=== PATIENT | female | born 2005 | race Caucasian/White ===

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

== ENCOUNTER 2024-04-02 21:00 | Emergency (ER) | payer BC ==
[~2024-04-02] VITALS: Ht 160 cm; Wt 58.6 kg
[2024-04-02 21:05] VITALS: BP 119/84; PULSE 73; RESP 16; TEMP 98.1; O2SAT 98
== END 2024-04-03 00:35 | disposition left against medical advice (07) ==
LOC: ER 21:01
DX: R09.81 Nasal congestion (principal); R05.9 Cough, unspecified; J00 Acute nasopharyngitis [common cold]; Z53.21 Procedure and treatment not carried out due to patient leaving prior to being seen by health care provider

== ENCOUNTER 2024-07-22 23:27 | Emergency (ER) | payer BC, MEDICAID ==
[~2024-07-22] VITALS: Ht 160 cm; Wt 60.7 kg
[2024-07-22 23:29] VITALS: TEMP 100.2
[2024-07-23 01:23] LABS: BASOPHILS % (AUTO) 0.4 % (0-1); EOSINOPHILS % (AUTO) 0 % (0-6); HEMATOCRIT 38.9 % (35.0-45.0); HEMOGLOBIN 13.8 g/dl (12.0-16.0); LYMPHOCYTES # (AUTO) 1.6 X10'3 (1.1-4.8); LYMPHOCYTES % (AUTO) 17.3 % (21-51); MEAN CORPUSCULAR HEMOGLOBIN 31.3 PG (27.0-31.0); MEAN CORPUSCULAR HGB CONC 35.3 g/dL (33.0-36.5); MEAN CORPUSCULAR VOLUME 88.5 FL (78-98); MEAN PLATELET VOLUME 7.7 FL (7.4-10.4); MONOCYTES # (AUTO) 0.8 X10'3 (0-0.9); MONOCYTES % (AUTO) 8.2 % (2-12); NEUTROPHILS % (AUTO) 74.1 % (42-75); PLATELET COUNT 244 X10'3 (140-440); RED CELL DISTRIBUTION WIDTH 12.7 % (11.5-14.5); WHITE BLOOD COUNT 9.5 X10'3 (4.5-11.0)
[2024-07-23] MEDS: ketorolac trometh 15mg/ml vial 15 MG/ML ML IV ONE (01:30)
[2024-07-23 01:35] LABS: ALBUMIN 3.1 G/DL (3.4-5.0); ANION GAP 11 (8-16); BLOOD UREA NITROGEN 8 MG/DL (7-18); CALCIUM 8.6 MG/DL (8.5-10.1); CHLORIDE 102 MMOL/L (99-107); GLUCOSE 183 MG/DL (70-104); POTASSIUM 3.6 MMOL/L (3.5-5.1); SODIUM 137 MMOL/L (135-145); eCRCL 94 ML/MIN; eGFR > 90 ML/MIN
[2024-07-23 01:55] LABS: STREP A SCREEN NEGATIVE (Neg)
[2024-07-23] MEDS ORDERED: LIDO15SO9 PO (02:42)
[2024-07-23] MEDS: LIDOcaine 2% Viscous 15ml cup MM ONE (02:44)
[2024-07-23] MEDS ORDERED: NORMAL SALINE IV ONE (02:45)
[2024-07-23] MEDS ORDERED: ACYCLOVIR IV ONE (02:45)
[2024-07-23 03:16] LABS: ALANINE AMINOTRANSFERASE 15 U/L (12-78); ALBUMIN/GLOBULIN RATIO 0.9 (1.1-1.5); ALKALINE PHOSPHATASE 118 IU/L (20-180); ASPARTATE AMINO TRANSFERASE 10 U/L (10-37); BILIRUBIN,DIRECT 0.1 MG/DL (0-0.3); BILIRUBIN,TOTAL 0.3 MG/DL (0.1-1.0); TOTAL PROTEIN 6.7 G/DL (6.4-8.2)
[2024-07-23 03:50] LABS: URINE HCG NEGATIVE (NEG)
[2024-07-23 03:53] LABS: BILIRUBIN,URINE NEGATIVE (Neg); CLARITY,URINE CLEAR (Clear); COLOR,URINE YELLOW (Yellow); GLUCOSE, URINE >=1000 mg/dl (Neg); KETONES,URINE 40 mg/dl (Neg); LEUKOCYTE ESTERASE ,URINE NEGATIVE (Neg); NITRITES, URINE NEGATIVE (Neg); OCCULT BLOOD,URINE LARGE (Neg); PROTEIN,URINE TRACE mg/dl (Neg); UROBILINOGEN,URINE 0.2 E.U/dL (0.2-1.0)
[2024-07-23 04:00] LABS: UA COLLECTION TYPE CLN CATCH MIDSTREAM
[2024-07-23 04:04] LABS: BACTERIA,URINE 2+ /HPF (Neg); SQUAMOUS EPITHELIAL CELL,UR MANY /LPF (FEW); WBC,URINE 20-30 /HPF (0-4)
[2024-07-23] MEDS: NORMAL SALINE IV ONE (04:29)
[2024-07-23] MEDS: ACYCLOVIR IV ONE (04:29)
[2024-07-23] MEDS: normal saline 1000ml 1,000 ML IV ONE (04:30)
[2024-07-23 04:52] LABS: URINE AMPHETAMINE SCREEN NEGATIVE (Neg); URINE BARBITUATE SCREEN NEGATIVE (Neg); URINE BENZODIAZEPINES SCREEN NEGATIVE (Neg); URINE CANNABINOID SCREEN NEGATIVE (Neg); URINE COCAINE SCREEN NEGATIVE (Neg); URINE METHADONE SCREEN NEGATIVE (Neg); URINE OPIATE SCREEN NEGATIVE (Neg); URINE PHENCYCLIDINE SCREEN NEGATIVE (Neg)
[2024-07-23 05:31] VITALS: BP 186/85; PULSE 98; RESP 14; O2SAT 100
== END 2024-07-23 05:34 | disposition home or self-care (01) ==
LOC: ER 23:27
DX: B00.9 Herpesviral infection, unspecified (principal); E10.9 Type 1 diabetes mellitus without complications; Z20.822 Contact with and (suspected) exposure to COVID-19
CPT/HCPCS: 36415; 80048; 80076; 80305; 81001; 81025; 85025; 87081; 87502; 87503; 87811; 87880; 96365; 96375; 99284; J0133; J1885; J7030

== ENCOUNTER 2024-08-28 03:55 | Emergency (ER) | payer BC, MEDICAID ==
[~2024-08-28] VITALS: Ht 160 cm; Wt 61.8 kg
[~2024-08-28 03:55] MED LIST changes: +LIDO15SO9 PO
[2024-08-28] MEDS: ondansetron 4mg rapidly disintigrating tab PO ONE (04:29)
--- NOTE | 2024-08-28 04:38 | ELECTROCARDIOGRAPH REPORT ---
[facility] Test Date: 2024-08-28 Test Time: 04:17:42 Pat Name: DEXTER KEITH Department: EMERGENCY ROOM Room: Gender: F Manager Psychiatry: CIARA : 2005 Requested By: JAMES CEABLLOS Order Number: [id number] Reading MD: Measurements Intervals [place] Rate: 95 P: 48 NC: 156 QRS: 66 QRSD: 75 T: 56 QT: 326 QTc: 410 Interpretive Statements Sinus rhythm Please click the below link to view image of tracing.
[2024-08-28] MEDS: acetaminophen 325mg tablet PO ONE (04:49)
[2024-08-28 05:26] VITALS: BP 112/68; PULSE 101; RESP 16; TEMP 98.8; O2SAT 100
--- NOTE | 2024-08-28 06:18 | Physician Documentation ---
Medication Reconciliation Allergies: Coded Allergies: No Known Allergies (Unverified , 04/02/24) Scheduled Lidocaine HCl (Lidocaine HCl Viscous), 15 ML PO Q6H Miscellaneous Medications Insulin Lispro (Humalog), 1 UNITS SQ, (Reported) Additional Comment Additional comments: The patient eloped from the ED without being seen by any physicians. Signature Scribe Signature: 1 Attestation: 1 JACOB RUSSELL MD August 28, 2024 06:18
== END 2024-08-28 07:09 | disposition left against medical advice (07) ==
LOC: ER 03:56
DX: R11.10 Vomiting, unspecified (principal); R10.84 Generalized abdominal pain; R07.9 Chest pain, unspecified; F14.90 Cocaine use, unspecified, uncomplicated; Z79.899 Other long term (current) drug therapy; Z53.21 Procedure and treatment not carried out due to patient leaving prior to being seen by health care provider
CPT/HCPCS: 82948; 93005

== ENCOUNTER 2024-10-11 10:06 | Emergency (ER) | payer MEDICAID ==
[~2024-10-11] VITALS: Ht 160 cm; Wt 60.1 kg
[2024-10-11 10:13] VITALS: BP 118/77; PULSE 117; RESP 18; TEMP 97.3; O2SAT 97
[2024-10-11 10:43] LABS: MEAN PLATELET VOLUME 7.4 FL (7.4-10.4); RED CELL DISTRIBUTION WIDTH 13.7 % (11.5-14.5)
[2024-10-11 10:56] LABS: CREATININE 0.83 MG/DL (0.40-0.90); TOTAL CARBON DIOXIDE 26.7 MMOL/L (24-32); eCRCL 89 ML/MIN; eGFR 88 ML/MIN
[2024-10-11 11:08] LABS: EOSINOPHILS % (MANUAL) 1.0 % (0-6); LYMPHOCYTES % (MANUAL) 60.0 % (21-51); MONOCYTES % (MANUAL) 6.0 % (2-12); NEUTROPHILS % (MANUAL) 33.0 % (42-75); PLATELET ESTIMATE NORMAL
== END 2024-10-11 12:43 | disposition left against medical advice (07) ==
LOC: ER 10:06
DX: E11.9 Type 2 diabetes mellitus without complications (principal); Z53.21 Procedure and treatment not carried out due to patient leaving prior to being seen by health care provider
CPT/HCPCS: 80053; 82948; 83690; 85007; 85025

== ENCOUNTER 2024-12-02 05:06 | Emergency (ER) | payer MEDICAID ==
[~2024-12-02] VITALS: Ht 160 cm; Wt 65.0 kg
[2024-12-02 05:20] VITALS: BP 121/80; PULSE 89; RESP 15; TEMP 96.3; O2SAT 99
--- NOTE | 2024-12-02 16:59 | Physician Documentation ---
History of Present Illness ~ Chief Complaint: Hyperglycemia Stated Complaint: DIABETIC COMPLICATION Time Seen by MD: 06:09 Medication Reconciliation Allergies: Coded Allergies: No Known Allergies (Unverified , 12/02/24) Scheduled Lidocaine HCl (Lidocaine HCl Viscous), 15 ML PO Q6H Miscellaneous Medications Insulin Lispro (Humalog), 1 UNITS SQ, (Reported) Past Medical History Past Medical History: Diabetes Past Surgical History: no surgical history Smoking Status: Unknown if ever smoked Alcohol Use: None Drug Use: marijuana Lives with: Family Lives In: Home Occupation: student Physical Exam Vital Signs: Temperature: 96.3, Source: Temporal, Heart Rate: 89, Respiratory Rate: 15, BP: 121/80, Pulse Oximetry: 99, Weight: 65.000 Progress Results/Orders Results/Orders Orders - ARIELLE TIWARI MD Urinalysis, Cult If Indicated (12/02/24 06:11) Hcg Serum Ql (12/02/24 06:12) Vital Signs 12/02/24 05:20 Temp 96.3 Pulse 89 Resp 15 B/P (MAP) 121/80 Pulse Ox 99 Laboratory Tests Test 12/02/24 05:24 Glucometer 500 *H Medical Decision Making Differential Diagnosis Patient left without being seen. Departure Disposition: 07 LEFT WITHOUT BEING SEEN Impression: Primary Impression: Hyperglycemia Referrals: NO PRIMARY CARE PROVIDER (PCP) Signature Scribe Signature: no scribe Attestation: no scribe ARIELLE TIWARI MD Dec 02, 2024 16:59
== END 2024-12-02 07:32 | disposition left against medical advice (07) ==
LOC: ER 05:07
DX: E11.65 Type 2 diabetes mellitus with hyperglycemia (principal); F12.90 Cannabis use, unspecified, uncomplicated; Z79.899 Other long term (current) drug therapy; Z53.21 Procedure and treatment not carried out due to patient leaving prior to being seen by health care provider
CPT/HCPCS: 82948